=== PATIENT | female | born 1970 | race Caucasian/White ===

== ENCOUNTER 2020-08-11 08:54 | Day surgery (SDC) | payer OTHER ==
[~2020-08-11] VITALS: Ht 158.8 cm; Wt 63.5 kg
[2020-08-11] MEDS ORDERED: fentaNYL citrate 0.05 MG/ML VIAL ONE (10:23)
[2020-08-11] MEDS ORDERED: LIDOCAINE 2% 100 MG/5 ML UJET TP ONE ×2 (10:24→12:30)
[2020-08-11] MEDS ORDERED: MIDAZOLAM 5 MG/5 ML VIAL ONE (11:37)
[2020-08-11] MEDS ORDERED: KETOROLAC 60 MG/2 ML VIAL IM ONE (11:59)
[2020-08-11] MEDS ORDERED: KETOROLAC 30 MG/ML VIAL IVP ONE (12:30)
== END 2020-08-11 13:00 | disposition home or self-care (01) ==
LOC: MDS 08:54 → MMU 09:00 → MDS 13:00
PROVIDERS: ATTEND Internal Medicine Gastroenterology
DX: Z12.11 Encounter for screening for malignant neoplasm of colon (principal); I10 Essential (primary) hypertension; E11.9 Type 2 diabetes mellitus without complications; E03.9 Hypothyroidism, unspecified; F17.210 Nicotine dependence, cigarettes, uncomplicated; Z79.899 Other long term (current) drug therapy
CPT/HCPCS: 45378; 87426; J1885; J2250; J3010

== ENCOUNTER 2020-09-18 13:26 | Emergency (ER) | payer OTHER ==
[~2020-09-18] VITALS: Ht 157.5 cm; Wt 64.0 kg
[2020-09-18 13:32] VITALS: BP 122/73
[2020-09-18] MEDS ORDERED: KETOROLAC 30 MG/ML VIAL IM ONE (13:50)
[2020-09-18] MEDS ORDERED: NAPR-1704 PO (14:30)
[2020-09-18 15:08] VITALS: BP 122/73
== END 2020-09-18 15:03 | disposition home or self-care (01) ==
LOC: MED 13:26
DX: S20.20XA Contusion of thorax, unspecified, initial encounter (principal); Z79.899 Other long term (current) drug therapy; Z98.890 Other specified postprocedural states; W03.XXXA Other fall on same level due to collision with another person, initial encounter; Y93.41 Activity, dancing; Y92.89 Other specified places as the place of occurrence of the external cause; Y99.8 Other external cause status
CPT/HCPCS: 71101; 96372; 99283; J1885

== ENCOUNTER 2022-03-05 12:37 | Inpatient (IN) | payer OTHER ==
[~2022-03-05] VITALS: Ht 157.5 cm; Wt 63.5 kg
[~2022-03-05 12:37] MED LIST: NAPR-1704 PO
[2022-03-05 12:42] VITALS: BP 141/91
--- NOTE | 2022-03-05 12:42 | NUR ---
BIBA BLS TO ER [facility]
--- NOTE | 2022-03-05 12:50 | NUR ---
CODE BRAIN CALLED BY DR MORGAN MORA. CENTRAL SERVICES TECH CALLED
--- NOTE | 2022-03-05 12:56 | NUR ---
PT TAKEN TO CT VIA GLADIS AND RN
--- NOTE | 2022-03-05 13:04 | NUR ---
PATIENT RETURNED VIA WHEELCHAIR AND PLACED INTO CHAIR C.
[2022-03-05] MEDS ORDERED: METOCLOPRAMIDE 10 MG/2 ML INJ VIAL IVP ONE (13:05)
[2022-03-05] MEDS ORDERED: NACL 0.9% 1,000 ML IV ONE (13:05)
[2022-03-05] MEDS ORDERED: MECLIZINE 25 MG TAB PO ONE ×2 (13:05→17:00)
--- NOTE | 2022-03-05 13:10 | NUR ---
51 y/o female biba from home, c/o dizziness that started today upon waking up at 1040AM. A&Ox4, wheelchair assisted, GCS 15; states she was getting up from bed and began experiencing dizziness. Pt reports was sick with flu around thanksgiving and was taking tamiflu. Pt also c/o sinus pressure and wei with rght arm numbness, pt does not have deficits on bl upper or lower extremities. Denies blurry vision, chest pain, nausea, vomiting, diarrhea, abdominal pain, fever, chills. Tylenol last night for WEI. Pt placed into chair C recliner and onto pulse oximetry, blood pressure monitoring. pmh: right bundle branch block, htn, dm2 (glucose 134), tenitius of bilateral hands, carpal tunnel syndrome Meds: levothyroxine, lisinopril, tamiflu, sudagest nka Sx: thyroidectomy, foot sx,
--- NOTE | 2022-03-05 13:10 | NUR ---
Lab at bedside
--- NOTE | 2022-03-05 13:25 | NUR ---
Bloodwork handed to CPT at ER bedside
[2022-03-05 13:35] LABS: BASOPHILS % (AUTO) 0.4 % (0.0-2.0); EOSINOPHILS # (AUTO) 0.2 K/uL (0-0.4); EOSINOPHILS % (AUTO) 2.2 % (0.0-4.0); HEMATOCRIT 42.8 % (36-48); HEMOGLOBIN 14.3 g/dL (12.0-16.0); LYMPHOCYTES # (AUTO) 1.8 K/uL (2.5-16.5); LYMPHOCYTES % (AUTO) 16.1 % (20.5-51.1); MEAN CORPUSCULAR HEMOGLOBIN 29 pg (27-31); MEAN CORPUSCULAR HGB CONC 34 g/dL (33-37); MEAN CORPUSCULAR VOLUME 86.4 fL (80-94); MONOCYTES # (AUTO) 0.6 K/uL (0.8-1.0); MONOCYTES % (AUTO) 4.9 % (1.7-9.3); NEUTROPHILS # (AUTO) 8.7 K/uL (1.8-7.7); NEUTROPHILS % (AUTO) 76.4 % (42.2-75.2); PLATELET COUNT (AUTO) 287 K/uL (140-450); RED BLOOD CELL COUNT(AUTO) 4.95 MIL/uL (4.20-5.40); RED CELL DISTRIBUTION WIDTH 13.3 % (11.6-13.7); WHITE BLOOD COUNT (AUTO) 11.4 K/uL (4.8-10.8)
[2022-03-05 13:42] LABS: ALBUMIN 3.5 g/dL (3.4-5.0); ANION GAP 12.7 (8-16); ASPARTATE AMINOTRANSFERASE 19 U/L (15-37); CHLORIDE 100 mmol/L (98-107); CREATININE 0.8 mg/dL (0.6-1.3); GFR ARICAN-AMERICAN 97 mL/min (>90); GLUCOSE 183 mg/dL (74-106); POTASSIUM 4.7 mmol/L (3.5-5.1); SODIUM SERUM 138 mmol/L (136-145); TOTAL BILIRUBIN 0.2 mg/dL (0.0-1.0); UREA NITROGEN, BLOOD 28 mg/dL (7-18)
[2022-03-05 13:44] LABS: PROTHROMBIN TIME 9.6 secs (10.8-13.4)
--- NOTE | 2022-03-05 16:42 | NUR ---
Verbal consent received from patient; status update.
[2022-03-05] MEDS ORDERED: diazePAM 5 MG TAB PO ONE (17:00)
--- NOTE | 2022-03-05 17:05 | NUR ---
Patient resting in position of comfort. States "I still feel woozy." PO meds to be given.
--- NOTE | 2022-03-05 18:05 | NUR ---
Patient without relief to symptoms. Patient attempted to ambulate; with unsteady gait.
--- NOTE | 2022-03-05 18:47 | NUR ---
1846 TELE-NEURO REQEST SENT; CONNECT ID [id number]
--- NOTE | 2022-03-05 18:55 | NUR ---
Teleneuro with Dr. Aguirre
[2022-03-05] MEDS ORDERED: [UNRECOGNIZED DRUG - CODE] PO (19:14)
[2022-03-05] MEDS ORDERED: LIOT25TA8 PO (19:14)
[2022-03-05] MEDS ORDERED: METF-346 PO (19:14)
[2022-03-05] MEDS ORDERED: TAM75 PO (19:14)
[2022-03-05] MEDS ORDERED: LISI-486 PO (19:14)
[2022-03-05] MEDS ORDERED: SYN.1 PO (19:14)
--- NOTE | 2022-03-05 19:14 | NUR ---
Jane swab collected, walked to lab.
--- NOTE | 2022-03-05 19:26 | NUR ---
Report given to LIONEL Andino.
--- NOTE | 2022-03-05 22:41 | NUR ---
PT MOVED TO ER BED 9
[2022-03-05] MEDS ORDERED: MORPHINE SULFATE 4 MG/ML SYR IVP PRN (23:05)
[2022-03-05] MEDS ORDERED: ONDANSETRON 4 MG/2 ML VIAL IVP PRN (23:05)
[2022-03-05] MEDS ORDERED: HYDROcodone/APAP 5/325 MG 1 TAB TAB PO PRN (23:05)
[2022-03-05] MEDS: NACL 0.9% 1,000 ML IV SCH (23:33)
--- NOTE | 2022-03-06 00:24 | NUR ---
PT ASSISTED TO BEDPAN
--- NOTE | 2022-03-06 00:49 | NUR ---
PATIENT CLEANED AND REPOSITIONED.
--- NOTE | 2022-03-06 01:46 | NUR ---
PATIENT RESTING IN BED WITH EYES CLOSED. DOESNT APPEAR TO BE IN DISTRESS. BED LOW AND LOCKED. CALL LIGHT IN REACH. ALL NEEDS MET.
[2022-03-06] MEDS: ACETAMINOPHEN 325 MG TAB PO PRN (02:43)
--- NOTE | 2022-03-06 03:44 | NUR ---
PATIENT RESTING IN BED WITH EYES CLOSED. DOESNT APPEAR TO BE IN DISTRESS. BED LOW AND LOCKED. ANTONIA SIDE RAILS FOR SAFETY. ALL NEEDS MET. CALL LIGHT IN REACH.
--- NOTE | 2022-03-06 07:20 | NUR ---
REPORT GIVEN TO LIONEL BARONE. TRANSFER OF CARE.
[2022-03-06 07:40] LABS: ALBUMIN 2.9 g/dL (3.4-5.0); CARBON DIOXIDE 27.1 mmol/L (21-32); CREATININE 0.6 mg/dL (0.6-1.3); MAGNESIUM 1.6 mg/dL (1.8-2.4); POTASSIUM 4.1 mmol/L (3.5-5.1); TOTAL BILIRUBIN 0.3 mg/dL (0.0-1.0)
[2022-03-06 08:19] VITALS: BP 111/65
--- NOTE | 2022-03-06 08:19 | NUR ---
PT ARRIVED ONTO UNIT VIA GURNEY, ACCOMPANIED BY ER NURSE AND TRANSPORTER. PT IS ALERT AND ORIENTED X4, ABLE TO VERBALIZE NEEDS, ABLE TO FOLLOW COMMANDS. RESPIRATIONS ARE EVEN AND UNLABORED, ON ROOM AIR. NO SIGNS OF DISTRESS NOTED. PT TRANSFERED INDEPENDENTLY FROM RTECUMSEH TO BED. NO COMPLAINTS OF PAIN AT THIS TIME. PT HAS IV TO L AC 20G. SKIN IS WARM, DRY, AND INTACT. CALL LIGHT WITHIN REACH. ALL SAFETY MEASURES IN PLACE.
--- NOTE | 2022-03-06 08:24 | NUR ---
Patient will be admitted to care of DR CLARKE. Admited to TELEMETRY. Will go to room 125A. Belongings list completed. Report to YONI FLOEWRS.
[2022-03-06 08:46] LABS: FREE T4 (FREE THYROXINE) 0.71 ng/dL (0.76-1.46); THYROID STIMULATING HORMONE 0.01 uIU/mL (0.34-3.74)
[2022-03-06] MEDS ORDERED: MAG SULF 2000 MG/WATER PREMIX 50 ML IV SCH (09:00)
[2022-03-06] MEDS ORDERED: LEVOTHYROXINE 0.1 MG TAB PO SCH (09:00)
[2022-03-06] MEDS: ATORVASTATIN 80 MG TAB PO SCH (09:45)
[2022-03-06] MEDS: CLOPIDOGREL 75 MG TAB PO SCH (09:45)
[2022-03-06] MEDS: DOCUSATE SODIUM 100 MG GELCAP PO SCH (09:46)
[2022-03-06] MEDS: ASPIRIN 81 MG TAB.CHEW PO SCH (09:46)
--- NOTE | 2022-03-06 10:02 | NUR ---
PT HAS ORDER FOR MRI. WILL FILL OUT MRI QUESTIONNAIRE AND REPORT BACK TO MANUFACTURING MILLWRIGHT.
--- NOTE | 2022-03-06 10:19 | NUR ---
DC PLANNING: PATIENT HAS AN ORDER FOR MRI OF THE BRAIN FAXED TO [facility]. PER RN MRI QUESTIONER PT STATED SHE HAS METAL SCREW IN HER LEG. RN NOTIFIED AND ORDERED FOOT X-RAY OF THE FOOT. CM TO FOLLOW Addendum: 03/07/22 at 1052 by Dalila French RN DC PLANNING SCHEDULED MRI AT [facility] AT 1 PM. ARRANGED TRANSPORT WITH [facility] AND RETURN. MANAGER STATE TIME 12PM NOTIFIED JEREL FLOWERS. CM TO FOLLOW Addendum: 03/11/22 at 1227 by Dalila French RN DC PLANNING: FAXED TO [facility] , [facility] AND [facility]. CM TO FOLLOW
--- NOTE | 2022-03-06 11:00 | NUR ---
DR WALKER MADE AWARE THAT PT STATES SHE BELIEVES SHE HAS SOME TYPE OF METAL IN HER FOOT, BUT SHE IS NOT SURE WHAT KIND IT IS. SHE STATES THAT "SINCE THE METAL HAS BEEN PLACED SHE HAS HAD AN MRI DONE BUT IT WAS YEARS AGO". PER DR WALKER, ORDER X RAY TO CHECK AND MAKE SURE.
--- NOTE | 2022-03-06 11:12 | NUR ---
PATIENT HAS BEEN SCREENED AND CATEGORIZED LOW NUTRITION RISK. PATIENT WILL BE SEEN WITHIN 7 DAYS OF ADMISSION. 03/12/[address]
--- NOTE | 2022-03-06 11:45 | NUR ---
DC PLANNING MET W/ PT AT BEDSIDE TO COMPLETE ASSESSMENT. PT REPORTS RESIDING ON A 2NF FLOOR APT WITH HER PARTNER, AT THE ADDRESS LISTED ON FILE. PT IDENTIFIED, MESSI FRANCO, PARTNER, AND DEBBIE BARRAZA, . PT DENIES HAVING AD IN PLACE AND DECLINED AD OFFERED BY SW. PT REPORTS LAST VISIT WITH PCP ONE WEEK AGO. PT REPORTS BEING MEDICATION COMPLIANCE. PT REPORTS RECEIVING MEDICATION FROM [facility], WHEN NEEDED. OT REPORTS BEING INDEPENDENT IN ALL ACTIVITIES AND DENIES USE OF DME. PT DNIES,MH/SMITH HX. PT DENIES HX OF HH, SNF, DIALYSIS [place]. PT REPORTS HX OF DIABETES THAT IS WELL MANAGED. PT REPORTS DC PLAN IS TO RETURN HOME, WHEN MEDICALLY STABLE. LARISSA INQUIRED ON RESOURCES NEEDED, PT DECLINED. Addendum: 03/08/22 at 1519 by Miki Alatorre SS Amended: Links added.
[2022-03-06] MEDS: NACL 0.9% 1,000 ML IV SCH (11:47)
[2022-03-06 12:00] VITALS: BP 118/60
--- NOTE | 2022-03-06 12:08 | NUR ---
X RAY COMPLETE AT THIS TIME. WAS INFORMED THAT PT DOES HAVE PINS IN L FOOT TO L GREAT TOE AND L PINKY TOE. AUTOMOBILE UPHOLSTERER APPRENTICE MADE AWARE.
--- NOTE | 2022-03-06 12:55 | NUR ---
PER OUTSIDE CONTRACTOR SALES, PT JUST HAD CT WITH CONTRAST DONE. NO METFORMIN OR GLUCOPHAGE FOR 2 DAYS STARTING TODAY. NOTE PLACED IN PT CHART.
--- NOTE | 2022-03-06 13:10 | NUR ---
DR WALKER MADE AWARE THAT X RAY SHOWED PT HAS METALLIC SCREWS IN THE 5TH METATARSAL AND 1ST METATARSAL, PT HAD ORDER FOR MRI. PER DR WALKER, CANCEL MRI AND PLACE ORDER FOR CONSULT WITH DR STRINGER.
--- NOTE | 2022-03-06 15:38 | NUR ---
P.T. NOTES P.T. EVAL COMPLETED; REFER TO EVAL FOR DETAILS.
--- NOTE | 2022-03-06 15:54 | NUR ---
MAINTENANCE PLUMBER INFORMED ME THAT DR WOULD LIKE TO CONTINUE WITH THE MRI. THAT PER DR WALKER, THE METALIC PINS IN PTS L METATARSALS POSE NO INTERACTION WITH MRI. WILL FILL OUT NEW MRI QUESTIONNAIRE.
[2022-03-06 16:00] VITALS: BP 108/60
--- NOTE | 2022-03-06 17:02 | NUR ---
INFORMED PT THAT SHE IS SCHEDULED FOR MRI AND WILL BE TRANSPORTED TO [facility] FOR MRI. PT IS IN AGREEMENT WITH PLAN.
--- NOTE | 2022-03-06 19:15 | NUR ---
ENDORSED PT TO DINKEY MOTOR OPERATOR NURSE FOR CONTINUITY OF CARE. PT IS STABLE.
--- NOTE | 2022-03-06 19:30 | NUR ---
RECEIVED REPORT FROM DAY SHIFT NURSE FOR CONTINUITY OF CARE. PATIENT LYING DOWN ON BED, AWAKE, ALERT AND ORIENTED X 4,SIGNIFICANT OTHER AT BEDSIDE. AROUSABLE BY VOICE. NO DISTRESS NOTED. ON ROOM AIR. SKIN INTACT. L AC G20, REFUSING IV INFUSION. PATENT AND INTACT. ALL SAFETY MEASURES IN PLACE, CALL LIGHT WITHIN REACH. WILL CONTINUE TO MONITOR.
[2022-03-06 20:00] VITALS: BP 160/78
--- NOTE | 2022-03-06 21:30 | NUR ---
SCHEDULE MEDICATIONS GIVEN. NO ADVERSE REACTION NOTED. WILL CONTINUE TO MONITOR THE PT.
[2022-03-07] VITALS: BP 160/77
[2022-03-07] MEDS: NACL 0.9% 1,000 ML IV SCH ×2 (00:05→12:35)
--- NOTE | 2022-03-07 02:03 | NUR ---
PT ASLEEP. NO S/SX OF DISTRESS NOTED. BREATHING EVEN AND UNLABORED. ALL PRECAUTIONS IN PLACE. CALL LIGHT WITHIN REACH. WILL CONTINUE TO MONITOR.
[2022-03-07 04:00] VITALS: BP 152/92
--- NOTE | 2022-03-07 06:59 | NUR ---
PT IS STABLE. NO ACUTE EVENTS THROUGHOUT THE NIGHT. BREATHING EVEN AND UNLABORED. S/SX OF DISTRESS AT THIS TIME. NO COMPLAINS OF PAIN. ALL PRECAUTIONS IN PLACE. CALL LIGHT WITHIN REACH. WILL ENDORSE TO AM SHIFT NURSE.
[2022-03-07 07:01] LABS: ALBUMIN 3.3 g/dL (3.4-5.0); ANION GAP 13.3 (8-16); CARBON DIOXIDE 27.8 mmol/L (21-32); CREATININE 0.6 mg/dL (0.6-1.3); MAGNESIUM 1.7 mg/dL (1.8-2.4); POTASSIUM 4.1 mmol/L (3.5-5.1); TOTAL BILIRUBIN 0.4 mg/dL (0.0-1.0)
[2022-03-07 08:00] VITALS: BP 141/78
--- NOTE | 2022-03-07 08:00 | NUR ---
RECEIVED REPORT FROM DATAWAREHOUSE DEVELOPER FOR CONTINUITY OF CARE. PATIENT ALERT AWAKE ORIENTED X4, NOT IN DISTRESS NOTED. DENIES PAIN. REFUSED IVF TO BE CONNECTED. ON MONITOR SHOWS SR. FOE MRI TODAY PATIENT IS AWARE REGARDING SCHEDULE TIME. CALL LIGHT WITHIN REACH. WILL CONTINUE TO MONITOR.
[2022-03-07] MEDS: ASPIRIN 81 MG TAB.CHEW PO SCH (09:03)
[2022-03-07] MEDS: CLOPIDOGREL 75 MG TAB PO SCH (09:03)
[2022-03-07] MEDS: ATORVASTATIN 80 MG TAB PO SCH (09:03)
[2022-03-07] MEDS: DOCUSATE SODIUM 100 MG GELCAP PO SCH (09:03)
[2022-03-07 10:48] LABS: BARBITURATE, URINE NEGATIVE ng/ml (NEG <=200); BENZODIAZEPINE, URINE POSITIVE ng/mL (NEG <=200); CANNABINOID, URINE NEGATIVE ng/mL (NEG <=50); COCAINE, URINE NEGATIVE ng/mL (NEG <=300); OPIATE, URINE NEGATIVE ng/mL (NEG <=2000); PHENCYCLIDINE SCREEN,URINE NEGATIVE ng/mL (NEG <=25)
--- NOTE | 2022-03-07 11:23 | NUR ---
SEEN BY DR. WAKLER WITH ORDER TO DOWNGRADE TO MED SURG, HEART MONITOR REMOVED.
--- NOTE | 2022-03-07 12:09 | NUR ---
ECHO IN PROGRESS, BUBBLE STUDY IN PROCESS. WILL CONTINUE TO MONITOR.
[2022-03-07] MEDS: LEVOTHYROXINE 0.1 MG TAB PO SCH (12:15)
--- NOTE | 2022-03-07 12:19 | NUR ---
[facility] HERE FOR PATIENT SH[facility] TO [facility] FOR MRI. PATIENT ALERT AWAKE ORIENTED. NOT IN DISTRESS NOTED.
--- NOTE | 2022-03-07 14:20 | NUR ---
RESULT OF MRI WAS CALLED AND MADE DR. WALKER AWARE. WILL CONTINUE TO MONITOR.
--- NOTE | 2022-03-07 14:21 | NUR ---
PATIENT BACK FROM [facility], ALERT AWAKE ORIENTED X4. IN STABLE CONDITION.
--- NOTE | 2022-03-07 19:27 | NUR ---
REPORT GIVEN TO THE SEISMOGRAPH COMPUTER FOR CONTINUITY OF CARE. PATIENT IN STABLE CONDITION.
[2022-03-07 20:00] VITALS: BP 128/79
--- NOTE | 2022-03-07 22:51 | NUR ---
REFUSE IVF - PER PT SHE DRINKS ALOT OF WATER , INFORMED DR. WALKER .- WILL ENDORSE . Addendum: 03/08/22 at 0755 by Khushi Medel RN INFORMED DR. CLARKE - NO RESPONSE
--- NOTE | 2022-03-08 | NUR ---
ASSISTED TO RESTROOM , VOIDED FREELY , CALL LIGHT WITHIN REACH .
[2022-03-08] MEDS: NACL 0.9% 1,000 ML IV SCH (01:05)
--- NOTE | 2022-03-08 04:00 | NUR ---
ROUNDS , SLEEPING , EASILY AROUSABLE , NO COMPLAIN MADE . , CALL LIGHT WITHIN REACH .
--- NOTE | 2022-03-08 04:00 | NUR ---
RPOUNDS , NO S/SX OF CAUTE DISTRESS NOTED AT THIS TIME .
[2022-03-08 06:26] LABS: ALBUMIN 3.4 g/dL (3.4-5.0); CARBON DIOXIDE 26.8 mmol/L (21-32); CREATININE 0.7 mg/dL (0.6-1.3); MAGNESIUM 1.6 mg/dL (1.8-2.4); POTASSIUM 3.8 mmol/L (3.5-5.1); TOTAL BILIRUBIN 0.5 mg/dL (0.0-1.0)
[2022-03-08] MEDS: LEVOTHYROXINE 0.1 MG TAB PO SCH (07:20)
--- NOTE | 2022-03-08 07:30 | NUR ---
RECEIVED REPORT FROM VP DIRECTOR OF CREATIVE STRATEGY NURSE. NO S/S OF DISTRESS. CALL LIGHT IN REACH. ALL SAFETY MEASURES IN PLACE. RIGHT SIDED WEAKNESS
--- NOTE | 2022-03-08 07:35 | NUR ---
ENDORSED PT FOR CONT. OF CARE .
[2022-03-08 08:00] VITALS: BP 155/87
[2022-03-08] MEDS ORDERED: INSULIN LISPRO SLIDING SCALE 100 UNITS/ML VIAL SUBQ PRN (08:25)
[2022-03-08] MEDS ORDERED: DEXTROSE 50% 50 ML SYR IVP PRN (08:25)
[2022-03-08] MEDS ORDERED: ASPI81CT95 PO (08:29)
[2022-03-08] MEDS ORDERED: LIP80 PO (08:29)
[2022-03-08] MEDS ORDERED: CLOP75TA55 PO (08:29)
[2022-03-08] MEDS ORDERED: MAG SULF 2000 MG/WATER PREMIX 50 ML IV PRN (08:50)
[2022-03-08] MEDS ORDERED: LIOTHYRONINE SODIUM PO SCH (09:00)
--- NOTE | 2022-03-08 09:00 | NUR ---
ASSISTED PT TO RESTROOM. RIGHT SIDED WEAKNESS. GAIT UNSTEADY
[2022-03-08] MEDS: ASPIRIN 81 MG TAB.CHEW PO SCH (09:31)
[2022-03-08] MEDS: ATORVASTATIN 80 MG TAB PO SCH (09:32)
[2022-03-08] MEDS: CLOPIDOGREL 75 MG TAB PO SCH (09:32)
[2022-03-08] MEDS: lisinopriL 5 MG TAB PO SCH (09:32)
[2022-03-08] MEDS: DOCUSATE SODIUM 100 MG GELCAP PO SCH (09:32)
[2022-03-08] MEDS: BLOOD GLUCOSE MONITORING 1 DEV DEV FS SCH ×3 (12:21→21:30)
--- NOTE | 2022-03-08 15:09 | NUR ---
PT WALKED WALKER WITH PT, STEADY GAIT WITH FRONT WHEELED WALKER. NO S/S OF DISTRESS. CALL LIGHT IN REACH. ALL SAFETY MEASURES IN PLACE. FAMILY AT BEDSIDE.
[2022-03-08 16:00] VITALS: BP 135/63
--- NOTE | 2022-03-08 16:48 | NUR ---
NOTIFIED , PT DOES NOT WANT INSULIN. PT REQUESTED HOME MEDICATION METFORMIN TO BE RECONCILED. PT ATE PRIOR TO GLUCOSE CHECK, PT REFUSED INSULIN ADMINISTRATION AT THIS TIME.
[2022-03-08] MEDS ORDERED: MAG SULF 2000 MG/WATER PREMIX 50 ML IV SCH ×3 (17:00→20:00)
[2022-03-08] MEDS: metFORMIN 500 MG TAB PO SCH ×2 (17:07→21:31)
--- NOTE | 2022-03-08 19:01 | NUR ---
PT RESTING IN BED. FAMILY AT BEDSIDE. NO S/S OF DISTRESS. CALL LIGHT IN REACH. ALL SAFETY MEASURES IN PLACE. ENDORSED TO VACUUM DRIER TENDER NURSE
--- NOTE | 2022-03-08 19:02 | NUR ---
RECEIVED REPORT FROM TRUPTI FLOWERS ABOUT THE PATIENT. PATIENT WAS STABLE DURING SHIFT REPORT. PATIENT IS ABLE TO VERBALIZE NEEDS AND WANTS. NO NOTED S/S OF PAIN/DISCOMFORT. NO NOTED S/S OF RESPIRATORY DISTRESS. PATIENT WAS ABLE TO SELF ADJUST WHILE IN BED. NEW NOTED ORDERS AT THIS TIME WAS ACKNOWLEDGED. SIDE RAILS UP X2 CALL LIGHT WITHIN REACH FOR ASSISTANCE. PATIENT IS AWARE OF HOW TO USE THE CALL LIGHT FOR ASSISTANCE. [email or web address]
--- NOTE | 2022-03-08 23:15 | NUR ---
PATIEN COMPLAINED F IV MEDICATION BURNING. COVERING RN CHANGED IV SITE TI THE RIGHT WRIST 20 GOLDY ON A SINGLE ATTEMPT. CALL LIGHT WITHIN REACH. SIDERAILS UP X 2. [email or web address]
--- NOTE | 2022-03-09 03:18 | NUR ---
PATIENT WAS ASSISTED TO RESTROOM THEN BACK TO BED. NO NOTED S/S OF PAIN/DISCOMFORT. NO S/S OF RESPIRATORY DISTRESS. SIDE RAILS X 2 AND CALL LIGHT WITHIN REACH. [email or web address]
[2022-03-09 04:00] VITALS: BP 138/67
--- NOTE | 2022-03-09 05:55 | NUR ---
PATIENT WAS GIVEN MORNING MED AND TOLERATED IT WELL. IT WAS NOTED PATIENT HAS DISCHARGE ORDERS. NURSING WILL ENDORSE TO AM SHIFT NURSE. KEPT CLEAN AND DRY. SIDE RAILS UP X 2. NO S/S OF PAIN/DISCOMFORT AND NO S/S OF RESPIRATORY DISTRESS. CALL LIGHT WITHIN REACH. [email or web address]
[2022-03-09] MEDS: LEVOTHYROXINE 0.1 MG TAB PO SCH (06:35)
[2022-03-09] MEDS: BLOOD GLUCOSE MONITORING 1 DEV DEV FS SCH ×4 (06:36→21:53)
--- NOTE | 2022-03-09 07:09 | NUR ---
ENDORSED TO MADIE RN, PATIENT WAS STABLE DURING SHIFT CHANGE. ALSO INFORMED OF DISCHARGE ORDERS. [email or web address]
[2022-03-09] MEDS: ATORVASTATIN 80 MG TAB PO SCH (10:00)
[2022-03-09] MEDS: DOCUSATE SODIUM 100 MG GELCAP PO SCH (10:00)
[2022-03-09] MEDS: CLOPIDOGREL 75 MG TAB PO SCH (10:00)
[2022-03-09] MEDS: lisinopriL 5 MG TAB PO SCH (10:00)
[2022-03-09] MEDS: ASPIRIN 81 MG TAB.CHEW PO SCH (10:00)
[2022-03-09] MEDS ORDERED: lisinopriL 10 MG TAB ONE (10:08)
[2022-03-09] MEDS: metFORMIN 500 MG TAB PO SCH ×2 (11:34→21:35)
--- NOTE | 2022-03-09 19:30 | NUR ---
RECEIVED REPORT FROM DAY SHIFT NURSE MADIE FOR CONTINUITY OF CARE. PATIENT IS A&O X4 PATIENT IS ON ROOM AIR, BREATHING IS NORMAL WITH SYMMETRICAL RISE AND FALL OF CHEST. PATIENT IV IS A 22G IN THE R WRIST; NO FLUIDS RUNNING AT THIS TIME (SALINE LOCKED). PATIENT IS LYING SEMI-FOWLERS. BED IS IN LOWEST POSITION, WHEELS LOCKED, CALL LIGHT IN PLACE. WILL CONTINUE TO OBSERVE PATIENT.
[2022-03-09 20:00] VITALS: BP 111/61
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
--- NOTE | 2022-03-10 01:00 | NUR ---
ASSISTED PATIENT IN AMBULATING TO THE BATHROOM. PATIENT TOLERATED THE WALK WELL. PATIENT'S GAIT WAS VERY UNSTEADY. ASSISTED PATIENT BACK TO BED AFTER SHE WAS DONE. BREATHING IS NORMAL WITH SYMMETRICAL RISE AND FALL OF CHEST. WILL CONTINUE TO OBSERVE PATIENT.
--- NOTE | 2022-03-10 03:30 | NUR ---
LOOKED IN ON PATIENT. PATIENT WAS BREATHING NORMALLY WITH SYMMETRICAL RISE AND FALL OF CHEST. WILL CONTINUE TO OBSERVE PATIENT.
[2022-03-10 04:00] VITALS: BP 110/78
[2022-03-10] MEDS: LEVOTHYROXINE 0.1 MG TAB PO SCH (06:49)
[2022-03-10] MEDS: BLOOD GLUCOSE MONITORING 1 DEV DEV FS SCH ×4 (06:54→22:00)
--- NOTE | 2022-03-10 07:00 | NUR ---
BS WAS 125, NO COVERAGE NEEDED. ADMINISTERED SYNTHROID TO PATIENT. PATIENT TOLERATED WELL WITH NO DIFFICULTY SWALLOWING. PATIENT'S BREATHING IS NORMAL WITH SYMMETRICAL RISE AND FALL OF CHEST. WILL CONTINUE TO OBSERVE PATIENT.
--- NOTE | 2022-03-10 07:40 | NUR ---
ENDORSED TO DAY SHIFT NURSE MADIE FOR CONTINUITY OF CARE. PATIENT IS STABLE.
[2022-03-10] MEDS: CLOPIDOGREL 75 MG TAB PO SCH (09:30)
[2022-03-10] MEDS: lisinopriL 5 MG TAB PO SCH (09:30)
[2022-03-10] MEDS: metFORMIN 500 MG TAB PO SCH ×2 (09:30→21:58)
[2022-03-10] MEDS: DOCUSATE SODIUM 100 MG GELCAP PO SCH (09:30)
[2022-03-10] MEDS: ATORVASTATIN 80 MG TAB PO SCH (09:30)
[2022-03-10] MEDS: ASPIRIN 81 MG TAB.CHEW PO SCH (09:30)
--- NOTE | 2022-03-10 19:30 | NUR ---
RECEIVED REPORT FROM DAY SHIFT NURSE MADIE FOR CONTINUITY OF CARE. PATIENT IS A&O X4 PATIENT IS ON ROOM AIR, BREATHING IS NORMAL WITH SYMMETRICAL RISE AND FALL OF CHEST. PATIENT HAS NO IV; PATIENT STATES THAT DAY SHIFT NURSE REMOVED THE IV AT PATIENT'S REQUEST. NO FLUIDS RUNNING AT THIS TIME (SALINE LOCKED). PATIENT DOES NOT WANT ANOTHER IV AT THIS TIME. PATIENT IS LYING SEMI-FOWLERS IN BED, VISITING WITH . BED IS IN LOWEST POSITION, WHEELS LOCKED, CALL LIGHT IN PLACE. WILL CONTINUE TO OBSERVE PATIENT.
[2022-03-10 20:00] VITALS: BP 128/68
--- NOTE | 2022-03-10 22:30 | NUR ---
OBTAINED BS; BS WAS 186. ADMINISTERED 2100 MEDICATIONS TO PATIENT. PATIENT TOLERATED WELL. CHECKED PATIENT'S EMAR, THERE WAS NO HUMALOG LISTED. NOTIFIED SPANISH PROFESSOR PHYSICIAN DR. HAINES THAT PATIENT WAS ON METFORMIN, BS WAS 186, AND THERE WAS NO HUMALOG ON EMAR. ASKED PHYSICIAN IF SHE WANTED HUMALOG. DR. HAINES RESPONDED TO PUT IN ORDER FOR HUMALOG SLIDING SCALE. PUT ORDER IN. WILL CONTINUE TO OBSERVE PATIENT.
--- NOTE | 2022-03-11 01:30 | NUR ---
LOOKED IN ON PATIENT. PATIENT WAS LYING SUPINE, SLEEPING. BREATHING WAS NORMAL WITH SYMMETRICAL RISE AND FALL OF CHEST. WILL CONTINUE TO OBSERVE PATIENT.
[2022-03-11 04:00] VITALS: BP 136/71
--- NOTE | 2022-03-11 04:00 | NUR ---
ASSISTED PATIENT IN AMBULATING TO THE BATHROOM. PATIENT'S GAIT IS UNSTEADY. PATIENT REFUSES TO USE THE WALKER, PREFERS SOMEONE HOLDING BOTH HER HANDS TO STABILIZER HER WHILE SHE WALKS. PATIENT STILL PREFERS WEARING OWN CLOTHES AND NOT THE HOSPITAL GOWN. PATIENT PREFERS NOT TO HAVE AN IV, STATING THAT IT BOTHERS HER. WILL CONTINUE TO OBSERVE PATIENT.
[2022-03-11] MEDS: LEVOTHYROXINE 0.1 MG TAB PO SCH (06:56)
[2022-03-11] MEDS: BLOOD GLUCOSE MONITORING 1 DEV DEV FS SCH ×4 (07:03→21:23)
[2022-03-11] MEDS: INSULIN LISPRO SLIDING SCALE 100 UNITS/ML VIAL SUBQ PRN (07:03)
--- NOTE | 2022-03-11 07:30 | NUR ---
ENDORSED TO DAY SHIFT NURSE MADIE FOR CONTINUITY OF CARE. PATIENT IS STABLE.
[2022-03-11] MEDS: ASPIRIN 81 MG TAB.CHEW PO SCH ×3 (09:08→09:16)
[2022-03-11] MEDS: DOCUSATE SODIUM 100 MG GELCAP PO SCH ×2 (09:09→09:13)
[2022-03-11] MEDS: metFORMIN 500 MG TAB PO SCH ×3 (09:09→09:14)
[2022-03-11] MEDS: ATORVASTATIN 80 MG TAB PO SCH ×2 (09:10→09:14)
[2022-03-11] MEDS: lisinopriL 5 MG TAB PO SCH ×2 (09:11→09:15)
[2022-03-11] MEDS: CLOPIDOGREL 75 MG TAB PO SCH ×2 (09:11→09:15)
--- NOTE | 2022-03-11 19:15 | NUR ---
RECEIVED REPORT FROM MADIE RN (REGISTRY), PATIENT WAS STABLE DURING SHIFT REPORT. PATIENT WAS WAKING UP FROM SLEEPING. AT BEDSIDE MESSAGING HER FEET. PATIENT HAD NOT EATEN DINNER SO SHE WILL EAT LATER. NURSING ENCOURAGED TO EAT TO PREVENT HYPO/HYPERGLYCEMIA. NO COMPLAINTS OF PAIN/DISCOMFORT AT THIS TIME.NO NOTED RESPIRATORY DISTRESS. SIDE RAILS UP X 2. CALL LIGHT WITHIN REACH. [email or web address]
--- NOTE | 2022-03-11 19:30 | NUR ---
Patient's Plan of Care was discussed and reviewed with JANAE ALDRICH
[2022-03-11 20:00] VITALS: BP 128/73
--- NOTE | 2022-03-11 23:25 | NUR ---
ASSISTED PATIENT TO RESTROOM WITH HER FRONT WHEEL WALKER. NO NOTED INCIDENT. PATIENT DENIED ANY PAIN/DISCOMFORT. NO NOTED RESPIRATORY DISTRESS. PATIENT WAS ABLE TO VERBALIZE HER NEEDS AND NURSING WAS ABLE TO ASSIST. CALL LIGHT WITHIN REACH JANITOR RAIL UP X 2. [email or web address]
[2022-03-12 04:00] VITALS: BP 135/77
--- NOTE | 2022-03-12 05:20 | NUR ---
PATIENT ASLEEP IN BED NO NOTED PROBLEMS. NURSING ASSISTED WITH BATHROOM BREAKS. NO COMPLAINTS OF PAIN/DISCOMFORT. NO S/S OF RESPIRATORY DISTRESS. [email or web address]
[2022-03-12] MEDS: BLOOD GLUCOSE MONITORING 1 DEV DEV FS SCH ×4 (06:44→21:30)
[2022-03-12] MEDS: LEVOTHYROXINE 0.1 MG TAB PO SCH (06:44)
[2022-03-12] MEDS: INSULIN LISPRO SLIDING SCALE 100 UNITS/ML VIAL SUBQ PRN ×3 (06:45→17:46)
--- NOTE | 2022-03-12 07:20 | NUR ---
ENDORSED TO JEREL FLOWERS , PATIENT WAS STABLE DURING SHIFT REPORT. [email or web address]
--- NOTE | 2022-03-12 08:00 | NUR ---
RECEIVED REPORT FROM DIRECTOR CPG FOR CONTINUITY OF CARE. PATIENT ALERT AWAKE ORIENTED X4, NOT IN ANY DISTRESS NOTED. DENIES PAIN. NO IV AT THIS TIME, REFUSED TO BE RE INSERTED. ATE BREAKFAST. CALL LIGHT WITHIN REACH. FALL PRECAUTION OBSERVED. WILL CONTINUE TO MONITOR.
[2022-03-12] MEDS: lisinopriL 10 MG TAB PO SCH (08:51)
[2022-03-12] MEDS: DOCUSATE SODIUM 100 MG GELCAP PO SCH (08:51)
[2022-03-12] MEDS: CLOPIDOGREL 75 MG TAB PO SCH (08:52)
[2022-03-12] MEDS: ATORVASTATIN 80 MG TAB PO SCH (08:52)
[2022-03-12] MEDS: metFORMIN 500 MG TAB PO SCH (08:53)
[2022-03-12] MEDS: ASPIRIN 81 MG TAB.CHEW PO SCH (08:53)
--- NOTE | 2022-03-12 10:00 | NUR ---
PATIENT ASSISTED TO THE BATHROOM USING WALKER WITH RIGHT SIDED WEAKNESS NOTED.
[2022-03-12 12:00] VITALS: BP 123/62
--- NOTE | 2022-03-12 17:01 | NUR ---
03/12/22 RD INITIAL ASSESSMENT COMPLETED PLEASE REFER TO NUTRITION ASSESSMENT UNDER CARE ACTIVITY FOR ESTIMATED NUTRITIONAL NEEDS. 1. RECOMMEND CCHO 60GM DIET WITH REGULAR TEXTURE TOLERATED 2. RECOMMEND GLUCERNA BID FOR NUTRITION SUPPORT - GLUCERNA BID WILL PROVIDE ADDITIONAL 440 KCAL, 20 GM PROTEIN DAILY AND WILL HELP PT TO MEET 100% OF ESTIMATED ENERGY NEEDS 3. RD TO FOLLOW-UP 7 DAYS, LOW RISK REVIEWED BY CHANTAL CAN RD
--- NOTE | 2022-03-12 18:41 | NUR ---
PATIENT RESTING IN BED. IN STABLE CONDITION.WILL ENDORSE TO THE NEXT SHIFT.
[2022-03-12 20:00] VITALS: BP 128/68
[2022-03-13 04:44] VITALS: BP 136/71
[2022-03-13] MEDS: ACETAMINOPHEN 325 MG TAB PO PRN (04:59)
[2022-03-13] MEDS: LEVOTHYROXINE 0.1 MG TAB PO SCH ×2 (06:12→08:56)
--- NOTE | 2022-03-13 07:27 | NUR ---
CLOSING NO CHANGE ON STATUS, NO DISTRESS NOTED, REPORT GIVEN TO LIONEL HEREDIA PER SBAR AT BEDSIDE.
[2022-03-13 08:00] VITALS: BP 141/75
[2022-03-13] MEDS: DOCUSATE SODIUM 100 MG GELCAP PO SCH (09:06)
[2022-03-13] MEDS: ASPIRIN 81 MG TAB.CHEW PO SCH (09:06)
[2022-03-13] MEDS: metFORMIN 500 MG TAB PO SCH (09:07)
[2022-03-13] MEDS: CLOPIDOGREL 75 MG TAB PO SCH (09:07)
[2022-03-13] MEDS: lisinopriL 10 MG TAB PO SCH (09:07)
[2022-03-13] MEDS: ATORVASTATIN 80 MG TAB PO SCH (09:07)
[2022-03-13] MEDS: BLOOD GLUCOSE MONITORING 1 DEV DEV FS SCH ×3 (11:47→17:18)
--- NOTE | 2022-03-13 16:49 | NUR ---
DC PLANNING: MET WITH THE PATIENT AT BEDSIDE TO DISCUSS DC TO HOME WITH HOME HEALTH. INFORMED PATIENT THE [facility] WILL BE ABLE TO SEE HER 03.14.22, PATIENT IS AGREEABLE. PER PATIENT HER WILL BE ABLE TO PICK HER UP. PATIENT REQUESTED A FWW TO GO HOME WITH. SHE STATED SHE WILL NEED THE WALKER GOING TO THE RESTROOM. FWW PROVIDED.
[2022-03-13] MEDS: INSULIN LISPRO SLIDING SCALE 100 UNITS/ML VIAL SUBQ PRN (17:18)
[2022-03-13 17:50] VITALS: BP 125/68
--- NOTE | 2022-03-13 18:14 | NUR ---
DISCHARGE INSTRUCTIONS AND PLAN OF CARE DISCUSSED WITH PATIENT AND . PATIENT AND VERBALIZED UNDERSTANDING. PATIENT DISCHARGED HOME VIA WC IN PRIVATE CARE WITH . Issa FINLEY RN.
== END 2022-03-13 18:30 | disposition home health service (06) | DRG 45 ==
LOC: MED 12:37 → OBSVTOIN 23:05 → MTU 23:05 → MMU 03-06 05:29
PROVIDERS: ADMIT Student in an Organized Health Care Education/Training Program; ATTEND Student in an Organized Health Care Education/Training Program
DX: I63.9 Cerebral infarction, unspecified (principal); G81.91 Hemiplegia, unspecified affecting right dominant side; E11.9 Type 2 diabetes mellitus without complications; E89.0 Postprocedural hypothyroidism; I10 Essential (primary) hypertension; R29.810 Facial weakness; Z20.822 Contact with and (suspected) exposure to COVID-19; R47.1 Dysarthria and anarthria; R29.702 NIHSS score 2
CPT/HCPCS: 36415; 70450; 73620; 80053; 80305; 82948; 83036; 83735; 84439; 84443; 84479; 84484; 85025; 85610; 85730; 87081; 92526; 93005; 96361; 96374; 97110; 97112; 97116; 97163-GP; 97530; 99285; J1644; J1815; J2405; J2765; J3475; J8597; Q9967